=== PATIENT | male | born 1980 | race Caucasian/White ===

== ENCOUNTER → 2016-08-28 | Outpatient (CLI) | payer OTHER ==
[~2016-08-28] MED LIST: APIDRA100 UNIT/1 SQ; BASAGLAR SQ; BI-PAP; CLOTRIMAZOLE-BE45 GM TP; FERROUS SULFAT325 M2 PO; FIORICET TAB1 EA PO; GYNE-LOTRIMIN 145 GM PV; LIPITOR TAB 2020 MG PO; NABUMETONE500 MG PO; NEURONTIN 300300 MG PO; OMEPRAZOLE20 MG PO; PROPRANOLOL HCL20 MG PO; TOPAMAX50 MG PO; VITAMIN B-121000 MC2 SL; ZESTRIL 40 MG T40 MG PO; ZOFRAN4 MG PO; ZOLOFT50 MG PO
[2016-08-28 08:25] LABS: HEMOGLOBIN 13.1 gm/dl (14.0-17.5); RED BLOOD COUNT 4.92 M/UL (4.20-5.50); WHITE BLOOD COUNT 6.5 K/UL (4.5-11.0)
[2016-08-28 08:42] LABS: BUN/CREATININE RATIO 17 (0-10)
== END ==
LOC: LAB 07:36
DX: F33.0 Major depressive disorder, recurrent, mild (principal); F41.9 Anxiety disorder, unspecified; Z79.899 Other long term (current) drug therapy
CPT/HCPCS: 36415; 80053; 80061; 82248; 82607; 82746; 83036; 84443; 85027; 93005

== ENCOUNTER → 2016-11-21 | Outpatient (CLI) | payer OTHER | LOC: KOH-I 09:37 | DX: R10.9 Unspecified abdominal pain (principal); N20.0 Calculus of kidney; N28.89 Other specified disorders of kidney and ureter | CPT/HCPCS: 74176 ==